=== PATIENT | male | born 1955 | race Hispanic/Latino ===

== ENCOUNTER 2020-11-14 02:44 | Emergency (ER) | payer SELFPAY ==
[2020-11-14] MEDS ORDERED: LIDOCAINE HCL 2% JELLY 5 ML ONE (03:15)
[2020-11-14] MEDS ORDERED: TETANUS/DIPHTHERIA TOXOID [ADULT] 0.5 ML VIAL IM ONE (03:16)
== END 2020-11-14 05:19 | disposition home or self-care (01) ==
LOC: EDH 02:44
DX: S01.01XA Laceration without foreign body of scalp, initial encounter (principal); F10.10 Alcohol abuse, uncomplicated; W18.39XA Other fall on same level, initial encounter; Y93.01 Activity, walking, marching and hiking; Y92.89 Other specified places as the place of occurrence of the external cause; Y99.8 Other external cause status
CPT/HCPCS: 12004; 70450; 72125; 90471; 90714

== ENCOUNTER 2020-11-30 09:47 | Emergency (ER) | payer OTHER, SELFPAY | END 2020-11-30 10:26 | disposition home or self-care (01) | LOC: EDH 09:47 | DX: S01.01XD Laceration without foreign body of scalp, subsequent encounter (principal); X58.XXXD Exposure to other specified factors, subsequent encounter | CPT/HCPCS: 99281 ==

== ENCOUNTER 2022-07-10 10:05 | Emergency (ER) | payer OTHER, SELFPAY ==
[~2022-07-10] VITALS: Ht 167.6 cm; Wt 81.6 kg
[2022-07-10 10:06] VITALS: BP 142/87
[2022-07-10] MEDS ORDERED: TETANUS/DIPHTHERIA TOXOID [ADULT] 0.5 ML VIAL IM ONE (11:30)
[2022-07-10] MEDS ORDERED: BACITRACIN 28.4 GM OINT TP ONE (11:30)
[2022-07-10] MEDS ORDERED: AMOX1TAB16 PO (11:32)
[2022-07-10] MEDS ORDERED: BACI30OI6 TP (11:32)
[2022-07-10] MEDS ORDERED: BACITRACIN 1 EACH PACKET TP ONE (11:36)
== END 2022-07-10 11:50 | disposition home or self-care (01) ==
LOC: EDH 10:05
DX: S01.511A Laceration without foreign body of lip, initial encounter (principal); W01.0XXA Fall on same level from slipping, tripping and stumbling without subsequent striking against object, initial encounter; Y93.01 Activity, walking, marching and hiking; Y92.89 Other specified places as the place of occurrence of the external cause; Y99.8 Other external cause status
CPT/HCPCS: 90471; 90714

== ENCOUNTER 2023-05-01 09:10 | Emergency (ER) | payer OTHER, BC ==
[~2023-05-01] VITALS: Ht 165.1 cm; Wt 81.6 kg
[~2023-05-01 09:10] MED LIST: AMOX1TAB16 PO; BACI30OI6 TP
[2023-05-01 09:12] VITALS: BP 157/89; PULSE 91; RESP 18
[2023-05-01] MEDS ORDERED: IBUP-2070 PO (14:06)
== END 2023-05-01 14:16 | disposition home or self-care (01) ==
LOC: EDH 09:10
DX: M25.561 Pain in right knee (principal); Z90.49 Acquired absence of other specified parts of digestive tract; V89.2XXA Person injured in unspecified motor-vehicle accident, traffic, initial encounter; Y93.89 Activity, other specified; Y92.89 Other specified places as the place of occurrence of the external cause; Y99.8 Other external cause status
CPT/HCPCS: 73564

== ENCOUNTER → 2023-12-25 | Outpatient (CLI) | payer BC, OTHER ==
[~2023-12-25] MED LIST changes: +IBUP-2070 PO
== END | disposition home or self-care (01) ==
LOC: RAH 09:58
PROVIDERS: ATTEND Family Medicine Sports Medicine
DX: Z13.6 Encounter for screening for cardiovascular disorders (principal)
CPT/HCPCS: 76775

== ENCOUNTER → 2024-09-23 | Outpatient (CLI) | payer BC, OTHER ==
[~2024-09-23] MED LIST changes: +HYDR-4060 PO; +IBUP-2077 PO; +PENI500T2 PO
--- NOTE | 2024-09-23 16:39 | HMCIMG ---
MR SHOULDER RIGHT WO REASON: M75.101 Unspecified rotator cuff tear or rupture of right shoulder, not spe COMPARISON: None TECHNIQUE: Routine imaging protocol was performed in the axial, oblique sagittal and oblique coronal plane with T1, proton density, T2 and gradient recalled sequences. FINDINGS: There is an extensive tear of the supraspinatus portion of the rotator cuff. Fragments are markedly distracted, proximally 4 cm. There is elevation of the humeral head in relation to the glenoid. There is degenerative change in the acromioclavicular joint and there is sclerosis of the undersurface of the acromion. These findings are consistent with a long-standing chronic rotator cuff tear. There are marked degenerative changes in the AC joint with a large inferiorly directed osteophyte. Biceps tendon appears unremarkable. There is glenohumeral joint effusion. There are no focal osseous lesions. IMPRESSION: 1. Large chronic-appearing distracted rotator cuff tear. 2. Elevated humeral head in relation to glenoid with degenerative change and at the glenohumeral joint space. 3. Marked AC joint degenerative changes with an inferiorly directed osteophyte.
== END | disposition home or self-care (01) ==
LOC: RAH 13:43
PROVIDERS: ATTEND Family Medicine
DX: M19.011 Primary osteoarthritis, right shoulder (principal); M25.711 Osteophyte, right shoulder; M25.411 Effusion, right shoulder; M75.101 Unspecified rotator cuff tear or rupture of right shoulder, not specified as traumatic
CPT/HCPCS: 73221

== ENCOUNTER 2025-03-24 09:46 | Emergency (ER) | payer BC, OTHER ==
[~2025-03-24] VITALS: Ht 165.1 cm; Wt 81.6 kg
[2025-03-24 10:04] LABS: IMMATURE GRANULOCYTE ABSOLUTE 0.01 K/uL (0-1); NUCLEATED RED BLOOD CELLS 0.0 % (0.0-0.19); PLATELET COUNT (AUTO) 168 K/uL (130-400); RED BLOOD CELL COUNT(AUTO) 3.96 MIL/uL (4.50-6.20); RED CELL DISTRIBUTION WIDTH 13.7 % (11.0-15.5); WHITE BLOOD COUNT (AUTO) 2.4 K/uL (4.8-10.8)
[2025-03-24 10:17] LABS: CREATININE 0.9 mg/dL (0.5-1.3); GLOMERULAR FILTR. RATE CALC 93.0 mL/min (>90); GLUCOSE,RANDOM 133.0 mg/dL (70-105); SODIUM SERUM 140.0 mmol/L (136-145); UREA NITROGEN, BLOOD 17.0 mg/dL (7-18)
[2025-03-24 10:23] LABS: INR 0.97 (0.85-1.15)
[2025-03-24 10:39] LABS: BAND NEUTROPHILS % (MANUAL) 1 % (0-2); LYMPHOCYTES % (MANUAL) 59 % (22-44); MAN.DIFF COMMENT-IMPRESSION MANUAL DIFFERENTIAL; MONOCYTES % (MANUAL) 8 % (2-9); PLATELET MORPHOLOGY COMMENT ADEQUATE; REACTIVE LYMPHOCYTES 2 % (0-0); SEGMENTED NEUTROPHILS % 30 % (40-70)
--- NOTE | 2025-03-24 11:12 | HMCIMG ---
EXAM: CR Chest, 1 View. CLINICAL HISTORY: Shortness of breath COMPARISON: None provided. FINDINGS: LUNGS: The lungs show no infiltrate or other acute finding. PLEURAL SPACES: No evidence of pleural effusion or pneumothorax. MEDIASTINUM: The cardiomediastinal silhouette is within normal limits. BONES: No aggressive appearing osseous lesion seen. IMPRESSION: No acute cardiopulmonary process. /[place]
[2025-03-24] MEDS ORDERED: KETO10TA2 PO (12:49)
--- NOTE | 2025-03-24 12:51 | ERN ---
General Chief Complaint: Back Pain-No Injury Stated Complaint: LEFT UPPER BACK Time Seen by MD: 09:50 Time Seen by Midlevel: 09:50 Source: patient History of Present Illness Initial Comments Patient is a 69-year-old male presenting to the emergency department with nontraumatic left upper back pain that started five days ago and has progressively worsened. He saw his primary care doctor yesterday for the same complaint and was sent to have x-rays of his upper back performed but has not received the results. Today the pain continued so he decided to report to the ER further evaluation. He was prescribed baclofen by his primary care doctor yesterday. Denies any other symptoms Allergies: Coded Allergies: No Known Drug Allergies (Unverified Allergy, Unknown, 07/10/22) Home Meds Active Scripts Ibuprofen (Ibuprofen 800 mg Tab) 800 Mg Tab, 800 MG PO Q8H PRN for fever or pain, #30 TAB 0 Refills Prov:JOSEFINA ZHANG MD 03/02/24 Hydrocodone/Acetaminophen (Hydrocodon-Acetaminophen 5-325) 5 Mg-325 Mg Tablet, 1 EACH PO Q6H for pain, #16 TAB 0 Refills Prov:JOSEFINA ZHANG MD 03/02/24 Penicillin V Potassium (Penicillin V Potassium) 500 Mg Tablet, 1 TAB PO QID for 10 Days, #40 TAB 0 Refills Prov:JOSEFINA ZHANG MD 03/02/24 Ibuprofen (Ibuprofen) 600 Mg Tablet, 600 MG PO Q6H PRN for PAIN, #30 TAB Prov:NICOLETTE HAYDEN MD 05/01/23 Bacitracin (Bacitracin) 28.4 Gm Oint...g., 28.4 GM TP TID, #1 TUBE Prov:BENJA KLEIN 07/10/22 Amoxicillin/Potassium Clav (Amox Tr-K Clv 875-125 mg Tab) 1 Each Tablet, 1 EACH PO BID, #14 TAB Prov:BENJA KLEIN 07/10/22 Past Medical History Past Medical History: Other Past Surgical History: Appendectomy ROS Dictation CONSTITUTIONAL: Negative except for HPI HEAD/FACE: Negative except for HPI EENT: Negative except for HPI RESPIRATORY: Negative except for HPI GASTROINTESTINAL/ABDOMINAL: Negative except for HPI GENITOURINARY: Negative except for HPI MUSCULOSKELETAL: Negative except for HPI INTEGUMENTARY: Negative except for HPI NEUROLOGICAL/PSYCH: Negative except for HPI HEMATOLOGIC/LYMPHATIC: Negative except for HPI All Systems Negative, Except as noted above. 13 point review of systems assessed and all negative except for above. Physical Exam Physical Exam Dictation Vital Signs reviewed General Appearance: Alert, oriented x 3, no acute distress, well developed, nourished. Head and Face: non-traumatic. Eyes: PERRL, pink conjunctivas, eyelid no trauma, anterior chamber with arcus senilis. Ears: Pinnas intact and no signs of trauma or erythema ear canals clear and no discharge TM no erythema Nose: No discharge, no bleeding. Oropharynx: Mouth normal, tongue pink, pharynx clear,no erythema, tonsils no exudates, no abscesses noted, mucous membrane moist Neck: Supple, non-tender, no thyromegaly, no masses, no JVD, no bruits Breast:Deferred Chest:No tenderness, no crepitus, no paradoxical movement, no retractions Lungs:Clear, well-ventilated, symmetric, no rales, no wheezing, no rhonchi, no stridor, good breath sounds bilaterally Heart: Regular rate, regular rhythm, no murmur, no gallops Vascular: no peripheral edema, Abdomen: Soft, positive bowel sounds, nondistended, no guarding, nontender, no rebound, no masses no hepatomegaly, no splenomegaly, no Johnson's sign, no hernias. Rectal: Deferred Genital: Deferred Neurological: Normal speech, motor function intact, sensory function intact Musculoskeletal: Neck nontender, full range of motion, back nontender, full range of motion, Extremities: nontender, full range of motion Skin: Color pink, dry, no turgor, no rash, no lacerations, no abrasions, no contusions. Lymphatic: Deferred Results Laboratory and Microbiology Lab and Micro Result Laboratory Tests Test 03/24/25 09:55 White Blood Count 2.4 K/uL (4.8-10.8) L Red Blood Count 3.96 MIL/uL (4.50-6.20) L Hemoglobin 13.8 g/dL (14.0-18.0) L Hematocrit 40.6 % (42-54) L Mean Corpuscular Volume 102.5 fL (79-99) H Mean Corpuscular Hemoglobin 34.8 pg (27.0-33.0) H Mean Corpuscular Hemoglobin Concent 34.0 g/dL (32.0-36.0) Red Cell Distribution Width 13.7 % (11.0-15.5) Platelet Count 168 K/uL (130-400) Mean Platelet Volume 9.6 fL (7.5-10.5) Immature Granulocyte % (Auto) 0.4 % (0-1) Neutrophils (%) (Auto) 25.1 % (40.0-77.0) L Lymphocytes (%) (Auto) 60.4 % (21.0-51.0) H Monocytes (%) (Auto) 12.5 % (3.0-13.0) Eosinophils (%) (Auto) 0.8 % (0.0-8.0) Basophils (%) (Auto) 0.8 % (0.0-5.0) Neutrophils # (Auto) 0.6 K/uL (1.8-7.7) L Lymphocytes # (Auto) 1.5 K/uL (1.0-4.8) Monocytes # (Auto) 0.3 K/uL (0.1-1.0) Eosinophils # (Auto) 0.02 K/uL (0.00-0.70) Basophils # (Auto) 0.02 K/uL (0.00-0.20) Absolute Immature Granulocyte (auto 0.01 K/uL (0-1) Segmented Neutrophils % 30 % (40-70) L Band Neutrophils % 1 % (0-2) Lymphocytes % (Manual) 59 % (22-44) H Monocytes % (Manual) 8 % (2-9) Nucleated Red Blood Cells 0.0 % (0.0-0.19) Differential Comment MANUAL DIFFERENTIAL Reactive Lymphocytes 2 % (0-0) H White Cell Morphology Comment Platelet Morphology Comment ADEQUATE Red Blood Cell Morphology See comments Prothrombin Time 10.3 SEC (9.6-11.6) Prothromb Time International Ratio 0.97 (0.85-1.15) Activated Partial Thromboplast Time 29.7 SEC (26.3-35.5) Sodium Level 140 mmol/L (136-145) Potassium Level 4.0 mmol/L (3.5-5.1) Chloride Level 104 mmol/L (101-111) Carbon Dioxide Level 27 mmol/L (21-32) Blood Urea Nitrogen 17 mg/dL (7-18) Creatinine 0.9 mg/dL (0.5-1.3) Glomerular Filtration Rate Calc 93 mL/min (>90) Random Glucose 133 mg/dL (70-105) H Total Calcium 8.8 mg/dL (8.5-10.1) Troponin I High Sensitivity 5 ng/L (4-75) Labs Reviewed?: Yes MDM MDM: Differential diagnosis: Pneumothorax, pneumonia, acute coronary syndrome There are no social concerns with this patient. Prescription drug management Prescriptions will include: Toradol Medical management and examination interpretation discussions were had by me with other qualified healthcare professionals as indicated for the patient's care. ED Course Orders Procedure Category Date Status Time 12 Lead Ekg Tracing- EKG 03/24/25 Logged Technical 09:50 Cbc With Differential LAB 03/24/25 Complete 09:50 Basic Metabolic Panel LAB 03/24/25 Complete 09:50 Pt And Ptt LAB 03/24/25 Complete 09:50 Troponin I High LAB 03/24/25 Complete Sensitivity 09:50 Chest 1vw RAD 03/24/25 Resulted 09:50 Manual Differential LAB 03/24/25 Complete 09:55 Vital Signs Date Time Temp Pulse Resp B/P (MAP) Pulse Ox O2 Delivery O2 Flow Rate FiO2 03/24/25 10:12 98.2 68 18 132/81 98 Room Air* 0 21 03/24/25 09:47 97.9 69 14 138/75 100 0 DX & DISP Disposition: Discharge Departure Impression: Primary Impression: Musculoskeletal pain Condition: Stable Scripts Ketorolac Tromethamine (Ketorolac Tromethamine) 10 Mg Tablet 1 TAB PO BID for pain for 5 Days, #10 TAB 0 Refills Prov: DAHLIA LEHMAN 03/24/25 Additional Instructions: Your blood work today is stable. Your cardiac enzymes are negative. Your EKGs normal. Your chest x-ray is normal. Your pain appears to be musculoskeletal in nature. You may continue the baclofen you were prescribed. I have also given you a short course of ketorolac which should help improve your pain over the next couple of days. Follow up with your primary care doctor in 2-3 days for repeat evaluation Referrals: CHUCKY GUTIERREZ MD (PCP) Time of Disposition: 12:48 I have reviewed the case, and I agree with, Diagnosis and Plan I performed the substantive portion of the visit. I have reviewed and perso adriane made and approve the management plan that is documented in the note by myself or the DHIRAJ. I acknowledge for responsibility for the patient's management plan. DAHLIA LEHMAN Mar 24, 2025 12:51
[2025-03-24 13:00] VITALS: BP 135/85; PULSE 73; RESP 18; TEMP 98.2; O2SAT 99
--- NOTE | 2025-03-24 13:33 | EKG ---
[facility] Test Date: 2025-03-24 Test Time: 09:58:30 Pat Name: SAMANTHA DE LA VEGA Department: [facility] Room: Gender: M Immigration Inspector: [id number] : 1955 Requested By: JOSEP MOFFETT Order Number: [id number] Reading MD: Agustin Watts Measurements Intervals [place] Rate: 68 P: 2 TX: 162 QRS: 29 QRSD: 78 T: 30 QT: 376 QTc: 401 Interpretive Statements Sinus rhythm Compared to ECG 03/02/2024 08:53:26 Sinus tachycardia no longer present Electronically Signed On 03-25-2025 15:33:55 CDT by Agustin Watts Please click the below link to view image of tracing.
== END 2025-03-24 13:30 | disposition home or self-care (01) ==
LOC: EDH 09:46
DX: M79.18 Myalgia, other site (principal); M54.6 Pain in thoracic spine; Z90.49 Acquired absence of other specified parts of digestive tract; Z79.899 Other long term (current) drug therapy
CPT/HCPCS: 36415; 71045; 80048; 84484; 85025; 85610; 85730; 93005; 99284

== ENCOUNTER 2025-07-27 13:22 | Emergency (ER) | payer BC, OTHER ==
[~2025-07-27] VITALS: Ht 165.1 cm; Wt 81.6 kg
[~2025-07-27 13:22] MED LIST changes: +IBUP-1492 PO; -IBUP-2070 PO; +KETO10TA2 PO
--- NOTE | 2025-07-27 13:38 | ERN ---
ED Note History of Present Illness Stated Complaint: LOW PLATELETS Chief Complaint: Abnormal Labs Time Seen by MD: 13:24 Dictation: PATIENT IS A 70-YEAR-OLD TOBACCO USER THAT IS STATES HE IS IN TODAY BECAUSE CALLED HIM AND TOLD HIM HIS PLATELETS WERE CRITICALLY LOW. HE HAD BEEN HAVING SHORTNESS BREATH ON EXERTION WITHOUT FEVER CHILLS NAUSEA VOMITING FOR THE LAST TWO WEEKS. DENIES ANY HISTORY OF CARDIAC DISEASE HE DOES SMOKE OCCASIONALLY. HAS BEEN SMOKING FOR MORE THAN 50 PACK YEARS. THE DOCTOR ADEN BLOOD YESTERDAY AND THEN CALLED HIM THIS MORNING SAID HIS PLATELETS WERE LOW IN THE COME TO THE EMERGENCY ROOM. DENIES ANY HISTORY OF CARDIAC DISEASE STENTS BYPASSES NO PULMONARY DISEASE Allergies: Coded Allergies: No Known Drug Allergies (Unverified Allergy, Unknown, 07/10/22) Home Meds Active Scripts Ketorolac Tromethamine (Ketorolac Tromethamine) 10 Mg Tablet, 1 TAB PO BID for pain for 5 Days, #10 TAB 0 Refills Prov:DAHLIA LEHMAN 03/24/25 Ibuprofen (Ibuprofen 800 mg Tab) 800 Mg Tab, 800 MG PO Q8H PRN for fever or pain, #30 TAB 0 Refills Prov:JOSEFINA ZHANG MD 03/02/24 Hydrocodone/Acetaminophen (Hydrocodon-Acetaminophen 5-325) 5 Mg-325 Mg Tablet, 1 EACH PO Q6H for pain, #16 TAB 0 Refills Prov:JOSEFINA ZHANG MD 03/02/24 Penicillin V Potassium (Penicillin V Potassium) 500 Mg Tablet, 1 TAB PO QID for 10 Days, #40 TAB 0 Refills Prov:JOSEFINA ZHANG MD 03/02/24 Ibuprofen (Ibuprofen) 600 Mg Tablet, 600 MG PO Q6H PRN for PAIN, #30 TAB Prov:NICOLETTE HAYDEN MD 05/01/23 Bacitracin (Bacitracin) 28.4 Gm Oint...g., 28.4 GM TP TID, #1 TUBE Prov:BENJA KLEIN 07/10/22 Amoxicillin/Potassium Clav (Amox Tr-K Clv 875-125 mg Tab) 1 Each Tablet, 1 EACH PO BID, #14 TAB Prov:BENJA KLEIN 07/10/22 Past Medical History Past Medical History: Other Surgical History: Appendectomy RN Note Reviewed/Agreed w/PFSH: Yes Review of System Dictation CONSTITUTIONAL: NEGATIVE EXCEPT FOR HPI HEAD/FACE: NEGATIVE EXCEPT FOR HPI EENT: NEGATIVE EXCEPT FOR HPI RESPIRATORY: NEGATIVE EXCEPT FOR HPI SHORTNESS A BREATH ON EXERTION GASTROINTESTINAL/ABDOMINAL: NEGATIVE EXCEPT FOR HPI GENITOURINARY: NEGATIVE EXCEPT FOR HPI MUSCULOSKELETAL: NEGATIVE EXCEPT FOR HPI INTEGUMENTARY: NEGATIVE EXCEPT FOR HPI NEUROLOGICAL/PSYCH: NEGATIVE EXCEPT FOR HPI HEMATOLOGIC/LYMPHATIC: NEGATIVE EXCEPT FOR HPI ALL SYSTEMS NEGATIVE, EXCEPT NOTED ABOVE. 13 POINT REVIEW OF SYSTEMS ASSESSED AND ALL NEGATIVE EXCEPT FOR ABOVE. Initial Vital Sign VS Vital Signs Date Time Temp Pulse Resp B/P (MAP) Pulse Ox O2 Delivery O2 Flow Rate FiO2 07/27/25 13:24 98.4 96 16 119/75 98 Room Air 0 Physical Exam Dictation VITAL SIGNS REVIEWED GENERAL APPEARANCE: ALERT, ORIENTED X 3, NO ACUTE DISTRESS, WELL DEVELOPED, NOURISHED. HEAD AND FACE: NON-TRAUMATIC. EYES: PERRL, PINK CONJUNCTIVAS, EYELID NO TRAUMA, ANTERIOR CHAMBER WITH ARCUS SENILIS. EARS: PINNAS INTACT AND NO SIGNS OF TRAUMA OR ERYTHEMA EAR CANALS CLEAR AND NO DISCHARGE TM NO ERYTHEMA NOSE: NO DISCHARGE, NO BLEEDING. OROPHARYNX: MOUTH NORMAL, TONGUE PINK, PHARYNX CLEAR,NO ERYTHEMA, TONSILS NO EXUDATES, NO ABSCESSES NOTED, MUCOUS MEMBRANE MOIST NECK: SUPPLE, NON-TENDER, NO THYROMEGALY, NO MASSES, NO JVD, NO BRUITS BREAST:DEFERRED CHEST:NO TENDERNESS, NO CREPITUS, NO PARADOXICAL MOVEMENT, NO RETRACTIONS LUNGS:CLEAR, WELL-VENTILATED, SYMMETRIC, NO RALES, NO WHEEZING, NO RHONCHI, NO STRIDOR, GOOD BREATH SOUNDS BILATERALLY HEART: REGULAR RATE, REGULAR RHYTHM, NO MURMUR, NO GALLOPS VASCULAR: NO PERIPHERAL EDEMA, ABDOMEN: SOFT, POSITIVE BOWEL SOUNDS, NONDISTENDED, NO GUARDING, NONTENDER, NO REBOUND, NO MASSES NO HEPATOMEGALY, NO SPLENOMEGALY, NO NIETO'S SIGN, NO HERNIAS. RECTAL: DEFERRED GENITAL: DEFERRED NEUROLOGICAL: NORMAL SPEECH, MOTOR FUNCTION INTACT, SENSORY FUNCTION INTACT MUSCULOSKELETAL: NECK NONTENDER, FULL RANGE OF MOTION, BACK NONTENDER, FULL RANGE OF MOTION, EXTREMITIES: NONTENDER, FULL RANGE OF MOTION SKIN: COLOR PINK, DRY, NO TURGOR, NO RASH, NO LACERATIONS, NO ABRASIONS, NO CONTUSIONS. LYMPHATIC: DEFERRED Results (Laboratory/Radiology) Laboratory/Radiology Laboratory Tests Test 07/27/25 13:43 White Blood Count 1.8 K/uL (4.8-10.8) L Red Blood Count 2.35 MIL/uL (4.50-6.20) L Hemoglobin 8.3 g/dL (14.0-18.0) L Hematocrit 24.9 % (42-54) L Mean Corpuscular Volume 106.0 fL (79-99) H Mean Corpuscular Hemoglobin 35.3 pg (27.0-33.0) H Mean Corpuscular Hemoglobin Concent 33.3 g/dL (32.0-36.0) Red Cell Distribution Width 14.6 % (11.0-15.5) Platelet Count 165 K/uL (130-400) Mean Platelet Volume 10.7 fL (7.5-10.5) H Immature Granulocyte % (Auto) 0.0 % (0-1) Neutrophils (%) (Auto) 13.2 % (40.0-77.0) L Lymphocytes (%) (Auto) 77.7 % (21.0-51.0) H Monocytes (%) (Auto) 9.1 % (3.0-13.0) Eosinophils (%) (Auto) 0.0 % (0.0-8.0) Basophils (%) (Auto) 0.0 % (0.0-5.0) Neutrophils # (Auto) 0.2 K/uL (1.8-7.7) L Lymphocytes # (Auto) 1.4 K/uL (1.0-4.8) Monocytes # (Auto) 0.2 K/uL (0.1-1.0) Eosinophils # (Auto) 0.00 K/uL (0.00-0.70) Basophils # (Auto) 0.00 K/uL (0.00-0.20) Absolute Immature Granulocyte (auto 0.00 K/uL (0-1) Nucleated Red Blood Cells 0.0 % (0.0-0.19) White Cell Morphology Comment See comments Red Blood Cell Morphology See comments Sodium Level 138 mmol/L (136-145) Potassium Level 4.1 mmol/L (3.5-5.1) Chloride Level 104 mmol/L (101-111) Carbon Dioxide Level 25 mmol/L (21-32) Blood Urea Nitrogen 14 mg/dL (7-18) Creatinine 0.8 mg/dL (0.5-1.3) Glomerular Filtration Rate Calc 96 mL/min (>90) Random Glucose 83 mg/dL (70-105) Total Calcium 8.3 mg/dL (8.5-10.1) L Magnesium Level 2.30 mg/dL (1.80-2.40) Troponin I High Sensitivity < 4 ng/L (4-75) L B-Type Natriuretic Peptide 57 pg/mL (0-100) CHEST X-RAY NEGATIVE Labs Reviewed?: Yes EKG Comment: [facility] Test Date: 2025-07-27 Test Time: 13:44:48 Pat Name: SAMANTHA DE LA VEGA Department: [facility] Room: Gender: Qi Specialist: [id number] : 1955 Requested By: SUZAN CORONA Order Number: [id number] Reading MD: Measurements Intervals [place] Rate: 89 P: 43 NC: 157 QRS: 31 QRSD: 75 T: 54 QT: 348 QTc: 425 Interpretive Statements Sinus rhythm Please click the below li ED Course ED Course Orders Procedure Category Date Status Time B-Type Natriuretic LAB 07/27/25 In Process Peptide 13:36 Covid19 (Sars Antigen LAB 07/27/25 Logged Rapid) 13:36 Cbc With Differential LAB 07/27/25 In Process 13:36 Chest 1vw RAD 07/27/25 Resulted 13:36 12 Lead Ekg Tracing- EKG 07/27/25 Complete Technical 13:36 Magnesium LAB 07/27/25 Complete 13:36 Troponin I High LAB 07/27/25 Complete Sensitivity 13:36 Basic Metabolic Panel LAB 07/27/25 Complete 13:36 Vital Signs Date Time Temp Pulse Resp B/P (MAP) Pulse Ox O2 Delivery O2 Flow Rate FiO2 07/27/25 13:24 98.4 96 16 119/75 98 Room Air 0 1710/PATIENT DISCHARGED HOME WITH PLATELET COUNT A [id number]. THERE WAS NO PNEUMONIA, NO BRONCHITIS THERE WAS NO ELEVATED BNP OR EFFUSION. WE WILL GIVE PATIENT ALBUTEROL INHALER AND HAVE HIM FOLLOW UP WITH HIS DOCTOR Medical Decision Making MDM MDM: DIFFERENTIAL DIAGNOSIS: ACS/AMI/PNEUMONIA/BRONCHITIS/SARS COVID/THROMBOCYTOPENIA RATIONALE: TESTS CONSIDERED AND ORDERED SECONDARY TO SHARED DECISION MAKING INCLUDE: LABS/RADIOLOGY/EKG PREVIOUS OUTSIDE RECORDS REVIEWED: OLD ER VISITS. RISK OF COMPLICATION AND/OR MORBIDITY OR MORTALITY OF PATIENT MANAGEMENT: NONE MEDICATIONS-PER MEDICATION RECONCILIATION NEED FOR HOSPITALIZATION: PATIENT DOES NOT MEET CRITERIA FOR HOSPITALIZATION. NONE NEED FOR EMERGENCY MAJOR/MINOR SURGERY: NO THERE ARE NO SOCIAL CONCERNS WITH THIS PATIENT. PRESCRIPTION DRUG MANAGEMENT ALBUTEROL PRESCRIPTIONS WILL INCLUDE SYMPTOMATIC CARE PATIENT'S PRIOR EXTERNAL MEDICAL RECORDS FROM OTHER ER VISITS WERE REVIEWED BY ME INDICATED. PRIOR TESTING AND RESULTS FROM PREVIOUS VISITS WERE REVIEWED. PRIOR TESTS WERE TAKEN INTO ACCOUNT WITH MEDICAL DECISION MAKING AND RESOURCE UTILIZATION, INDEPENDENT HISTORIAN/HISTORIANS WERE USED TO OBTAIN COMPLETE MEDICAL HISTORY. I INDEPENDENTLY INTERPRETED THE TEST THAT WERE PERFORMED, RESULTS WERE REVIEWED BY ME AND CONSIDERED FINDINGS ON RADIOLOGY IF ORDERED. MEDICAL MANAGEMENT AND EXAMINATION INTERPRETATION DISCUSSIONS WERE HAD BY ME WITH OTHER QUALIFIED HEALTHCARE PROFESSIONALS INDICATED FOR THE PATIENT'S CARE. DX & DISP Disposition: Discharge Departure Impression: Primary Impression: Leukopenia Additional Impressions: Dyspnea on exertion, Chronic anemia Condition: Stable Scripts Albuterol Sulfate (Ventolin Hfa/Proventil Hfa/Proair Hfa) 90 Mcg Puff 2 PUFF IH Q4H for WHEEZING, #1 INHALER 0 Refills Prov: SUZAN CORONA 07/27/25 Additional Instructions: FOLLOW-UP WITH PRIMARY CARE PROVIDER IN 1 TO 2 DAYS. TAKE MEDICATIONS DIRECTED HERE IN THE EMERGENCY ROOM. OKAY TO CONTINUE HOME MEDICATIONS UNLESS OTHERWISE DISCUSSED DURING YOUR VISIT IN THE EMERGENCY ROOM TODAY. RETURN TO YOUR NEAREST EMERGENCY ROOM IF SYMPTOMS WORSEN OR IF THERE IS NO IMPROVEMENT. CALL 911 IF YOU NEED IMMEDIATE ASSISTANCE. TAKE TYLENOL OR MOTRIN ACAG-EGM-DOCYTAH NEEDED AND IF NO CONTRAINDICATIONS ARE PRESENT. INCREASE ORAL HYDRATION. A WOUND CULTURE OR URINE CULTURE WAS ORDERED HERE IN THE EMERGENCY ROOM DEPARTMENT PLEASE FOLLOW-UP WITH PRIMARY CARE PROVIDER AND ADVISE THEM TO GET REPEAT PORTS FROM OUR FACILITY. IF YOU HAD ANY SLY WRAP/SPLINTS THAT WERE APPLIED HERE, PLEASE DO NOT REMOVE THEM UNTIL YOU SEE YOUR PRIMARY CARE OR SPECIALTY. USE ALBUTEROL INHALER EVERY 4 HOURS WHILE AWAKE FOR THE NEXT TWO DAYS. FOLLOW UP WITH THE YOUR PRIMARY CARE DOCTOR NEEDED Referrals: CHUCKY GUTIERREZ MD (PCP) Time of Disposition: 17:12 I have reviewed the case, and I agree with, Diagnosis and Plan SUZAN CORONA Jul 27, 2025 13:37
--- NOTE | 2025-07-27 13:46 | EKG ---
[facility] Test Date: 2025-07-27 Test Time: 13:44:48 Pat Name: SAMANTHA DE LA VEGA Department: [facility] Room: Gender: M Web Services Professional: [id number] : 1955 Requested By: SUZAN CORONA Order Number: [id number] Reading MD: Marbin Boyce Measurements Intervals [place] Rate: 89 P: 43 DC: 157 QRS: 31 QRSD: 75 T: 54 QT: 348 QTc: 425 Interpretive Statements Sinus rhythm Compared to ECG 03/24/2025 09:58:30 No significant changes Electronically Signed On 07-27-2025 18:17:17 TELEPHONE ORDER DISPATCHER by Marbin Boyce Please click the below link to view image of tracing.
[2025-07-27 13:50] LABS: IMMATURE GRANULOCYTE ABSOLUTE 0.00 K/uL (0-1); NUCLEATED RED BLOOD CELLS 0.0 % (0.0-0.19); PLATELET COUNT (AUTO) 165 K/uL (130-400); RED BLOOD CELL COUNT(AUTO) 2.35 MIL/uL (4.50-6.20); RED CELL DISTRIBUTION WIDTH 14.6 % (11.0-15.5); WHITE BLOOD COUNT (AUTO) 1.8 K/uL (4.8-10.8)
[2025-07-27 14:04] LABS: CREATININE 0.8 mg/dL (0.5-1.3); GLOMERULAR FILTR. RATE CALC 96.0 mL/min (>90); GLUCOSE,RANDOM 83.0 mg/dL (70-105); SODIUM SERUM 138.0 mmol/L (136-145); UREA NITROGEN, BLOOD 14.0 mg/dL (7-18)
--- NOTE | 2025-07-27 15:03 | HMCIMG ---
EXAM: CR Chest, 1 View. CLINICAL HISTORY: SHORTNESS A BREATH ON EXERTION COMPARISON: March 24 2025 FINDINGS: LUNGS: The lungs show no infiltrate or other acute finding. PLEURAL SPACES: No pleural effusion or pneumothorax. MEDIASTINUM: The cardiomediastinal silhouette is within normal limits. BONES: No acute osseous abnormality. IMPRESSION: No acute cardiopulmonary pathology is evident. /[place]
[2025-07-27] MEDS ORDERED: ALBUHFA IH (17:13)
[2025-07-27 17:45] VITALS: BP 131/83; PULSE 84; RESP 16; TEMP 98; O2SAT 100
== END 2025-07-27 17:46 | disposition home or self-care (01) ==
LOC: EDH 13:22
DX: D72.819 Decreased white blood cell count, unspecified (principal); D64.9 Anemia, unspecified; R06.09 Other forms of dyspnea; Z90.49 Acquired absence of other specified parts of digestive tract
CPT/HCPCS: 36415; 71045; 80048; 83735; 83880; 84484; 85025; 93005; 99284